=== PATIENT | female | born 1985 | race Caucasian/White ===

== ENCOUNTER → 2022-02-25 | Outpatient (CLI) | payer MEDICAID, SELFPAY ==
[2022-02-25 08:31] LABS: Absolute Lymphocyte Count 1.23 X10^3/uL (0.83-4.51); Absolute Neutrophil Count 5.4 X10^3/uL (2.0-7.7); Basophil# 0.02 X10^3/uL; Basophil% 0.3 % (0-1); Eosinophil# 0.17 X10^3/uL; Eosinophils% 2.4 % (0-5); Hematocrit 35.9 % (37-47); Hemoglobin 12.2 g/dL (12.0-15.0); Lymphocyte # 1.23 X10^3/ul (0.83-4.51); Mean Corpuscular Hgb 29.8 pg (27.0-32.0); Mean Corpuscular Volume 87.6 fL (81-99); Mean Platelet Vol. 9.4 fl (6.2-12.0); Monocyte# 0.39 X10^3/uL; Monocyte% 5.4 % (0-10); NRBC Flagged by Analyzer 0 % (0-5); Neutrophil % 74.6 % (47-70); Platelet Count 233 K/mm3 (150-450); RBC Distribution Width CV 13.5 % (11.6-14.6); RBC Distribution Width SD 43.1 fl (35.1-43.9); White Blood Count 7.2 K/mm3 (4.4-11.0)
[2022-02-25 08:41] LABS: Glucose Challenge Gest 1H 50g 137 mg/dL (70-140)
[2022-02-25 09:11] LABS: HIV - WCH Non-Reactive (Nonreactive); Syphilis Antibodies Non-reactive
== END | disposition home or self-care (01) ==
LOC: PAVLAB 08:12
PROVIDERS: PCP Family Medicine; Referring Provider Registered Nurse; Visit Provider Registered Nurse
DX: O09.90 Supervision of high risk pregnancy, unspecified, unspecified trimester (principal); Z13.1 Encounter for screening for diabetes mellitus; Z67.91 Unspecified blood type, Rh negative; Z3A.00 Weeks of gestation of pregnancy not specified
CPT/HCPCS: 36415; 82950; 85025; 86703; 86780; 86900; 86901

== ENCOUNTER → 2022-03-14 | Outpatient (CLI) | payer MEDICAID, SELFPAY ==
[2022-03-14 07:39] LABS: Glucose GTT-Gestation. Fasting 93 mg/dL (<105)
[2022-03-14 08:37] LABS: Glucose GTT-Gestational 1 Hr 187 mg/dL (<190)
[2022-03-14 10:25] LABS: Glucose GTT-Gestational 2 Hr 132 mg/dL (<165)
[2022-03-14 10:51] LABS: Glucose GTT-Gestational 3 Hr 55 L (<145)
== END | disposition home or self-care (01) ==
PROVIDERS: PCP Family Medicine; Referring Provider Registered Nurse; Visit Provider Registered Nurse
DX: O99.810 Abnormal glucose complicating pregnancy (principal); Z3A.00 Weeks of gestation of pregnancy not specified
CPT/HCPCS: 36415; 82951; 82952

== ENCOUNTER → 2022-04-15 | Outpatient (CLI) | payer OTHER, MEDICAID, SELFPAY ==
--- NOTE | 2022-04-15 12:23 | US_ITS ---
STUDY: SECOND AND THIRD TRIMESTER OBSTETRICAL ULTRASOUND REASON FOR EXAM: Female, 37 years old obesity LMP: Unknown TECHNIQUE: Transabdominal TECHNICAL QUALITY: Adequate. PRIOR ULTRASOUND: None. FINDINGS: There is a single intrauterine fetus. The fetus is in a cephalic presentation. There is demonstrated cardiac activity with a heart rate of 153 bpm. There is a normal amniotic fluid volume. The largest amniotic fluid pocket measures 6.0 cm. The amniotic fluid index (LEANDRO) is 12 cm. The placenta is fundal in location. There are Grade 1 placental changes. The cervix measures 3.7 cm in length. The adnexal regions are not visualized. BIOMETRY: BPD: 8.9 cm: 35 weeks, 6 days HC: 33.5 cm: 38 weeks, 2 days AC: 34.7 cm: 38 weeks, 4 days FL: 6.98 cm: 35 weeks, 6 days CI: 82% FL/BPD: 79% FL/HC: FL/AC: 20% HC/AC: 0.97 age by current US: 36 weeks, 2 days. JANIE by current US: 05/11/2022. Estimated weight: 3233 grams, +/- 485 grams, 87 %. Age by LMP: 36 weeks, 0 days. JANIE by LMP: 05/13/2022. US/OB Limited With Biometrics IMPRESSION: Single live intrauterine gestation with a mean gestational age of 36 weeks and 2 days. Electronically Signed: Aguila Beebe MD at 15:41 EST ,
== END | disposition home or self-care (01) ==
PROVIDERS: PCP Family Medicine; Referring Provider Registered Nurse; Visit Provider Registered Nurse
DX: O99.211 Obesity complicating pregnancy, first trimester (principal); E66.01 Morbid (severe) obesity due to excess calories; Z3A.12 12 weeks gestation of pregnancy
CPT/HCPCS: 76816

== ENCOUNTER → 2022-04-20 | Outpatient (CLI) | payer OTHER, MEDICAID, SELFPAY | END | disposition home or self-care (01) | PROVIDERS: PCP Family Medicine; Visit Provider Obstetrics & Gynecology | DX: O09.90 Supervision of high risk pregnancy, unspecified, unspecified trimester (principal); Z3A.00 Weeks of gestation of pregnancy not specified | CPT/HCPCS: 87077; 87081; 87186 ==

== ENCOUNTER → 2022-05-04 | Outpatient (CLI) | payer OTHER, MEDICAID, SELFPAY ==
[2022-05-04 13:08] LABS: ROM Internal Control Test YES-OK TO RESULT pt. (Internal QC); ROM Patient Test Negative (Negative)
== END | disposition home or self-care (01) ==
LOC: LABSPEC 12:49
PROVIDERS: PCP Family Medicine; Referring Provider Obstetrics & Gynecology; Visit Provider Obstetrics & Gynecology
DX: O26.899 Other specified pregnancy related conditions, unspecified trimester (principal); N89.8 Other specified noninflammatory disorders of vagina; Z3A.00 Weeks of gestation of pregnancy not specified
CPT/HCPCS: 84112

== ENCOUNTER 2022-05-09 07:04 | Inpatient (IN) | payer OTHER, MEDICAID, SELFPAY ==
[2022-05-09] VITALS (62 sets, daily range): BP systolic 112–159; BP diastolic 56–95; PULSE 69–120; RESP 14–22; TEMP 35.8–36.9; O2SAT 86–100; BMI 52.0
[2022-05-09] MEDS: Lactated Ringers 1,000 ML 50 ML IV (07:54)
--- NOTE | 2022-05-09 08:16 | HP.PCM.OB_ITS ---
HPI - General General Date of Admission: 05/09/22 HPI Narrative DESTIN HEART, is a 37 F who presents at 39.4 for IOL for suspected LGA. EFW at 36 weeks 3233g, 87%. 3 hour gct normal. course complicated by maternal obesity, GBS positive. Maternal Data Information JANIE Calculator Estimated Delivery Date Method Current WG Current Estimate 05/13/22 Manual 39w 3d Other Estimates 05/19/22 LMP (Certain) 38w 4d PFSH PFSH Medical History (Updated 05/09/22 @ 08:29 by Barbara Glynn CNM) Anxiety Depression Home Medications multivit-min no.71-iron fum 28 mg-folate no.1 1 mg-dha 300 mg capsule (PNV- [place]) cap PO 12/27/21 [History Last Taken Unknown] aspirin 81 mg chewable tablet 81 mg PO DAILY 05/09/22 [History Last Taken 05/08/22 15:00] Allergy/AdvReac Type Severity Reaction Status Date / Time No Known Allergies Allergy Verified 05/04/22 11:00 Family History Grandmother Colon cancer Paternal- unknown age of onset Social History adopted: No household members: significant other and children housing: house number of children: 1 current occupational status: employed current occupation: residential cleaning pets and animals: No sexually active: No Smoking Status: Former smoker quit date: 12/27/20 Electronic Cigarette Use: with nicotine alcohol intake: former details: socially substance use type: does not use well-balanced diet: about half the time caffeine: Yes Type: coffee Number of servings: 1 eating out: rarely or never during the past year weight has: remained stable what type of physical activity do you participate in: walking frequency: 3-4 times per week duration: 15-30 minutes/day aarti/baptism: None seatbelt use: always do you feel safe at home: Yes 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 Date Name GA/Weeks Outcome Route Bth Weight Infant Gen Labor Lgth Anesthesia Del Locatn Provider FOB 03/23/12 Chelsey 38 live - full term 8#2.5oz Female epidural [place] Dr. Hari Page Delivery Date: 03/23/12 Last Updated by: Selma Solano IOL, pre-e/poor diet Visit Details OB Flowsheet Initial Weight: Not Recorded Date -?-?-?-?-?-?-?-?-?-?-?-?- EGA Weight BP Urine Prot -?-?-?-?-?-?-?-?-?-?-?-?- Glucose FHR FuHt Pres Dilation -?-?-?-?-?-?-?-?-?-?-?-?- Effaced St Visit Note 12/27/21 -?-?-?-?-?-?-?-?-?-?-?-?- 20w 3d 265 lb 4 oz 128/81 Nega tive -?-?-?-?-?-?-?-?-?-?-?-?- Negative 150 20 -?-?-?-?-?-?-?-?-?-?-?-?- transfer of care . records not available. anatomy scan obtained at [facility], obtaining additional views. reviewed healthy wt gain in . 01/24/22 -?-?-?-?-?-?-?-?-?-?-?-?- 24w 3d 271 lb 4 oz 133/84 Nega tive -?-?-?-?-?-?-?-?-?-?-?-?- Negative 148 24 -?-?-?-?-?--?-?-?-?-?-?-?- LC- doing well. no ctx,vb,lof. good fm. 28 week labs ordered. JANIE changed based on 1st trimester us. 05/13/2022. 02/25/22 -?-?-?-?-?-?-?-?-?-?-?-?- 29w 0d 281 lb 6 oz 124/82 -?-?-?-?-?-?-?-?-?-?-?-?- 144 31 -?-?-?-?-?-?-?-?-?-?-?-?- LC- doing well. difficult to measure d/t habitus.1 hr GCT elevated. 3hr gtt ordered. discussed starting diabetic diet now. LC- doing well. difficult to measure d/t habitus.1 hr GCT elevated. 3hr gtt ordered. discussed starting diabetic diet now. will obtain growth scan if elevated at next visit. 03/07/22 -?-?-?-?-?-?-?-?-?-?-?-?- 30w 3d 287 lb 4 oz 130/82 Nega tive -?-?-?-?-?-?-?-?-?-?-?-?- Negative 149 32 -?-?-?-?-?-?-?-?-?-?-?-?- MH-No VB, LOF. Dec FM yesterday but better today. FHT easily found. Reviewed kick counts. echo next week. Enc need to sched 3 hr GTT. Declines flu/tdap 03/21/22 -?-?-?-?-?-?-?-?-?-?-?-?- 32w 3d 288 lb 8 oz 154/80 132/80 Negative -?-?-?-?-?-?-?-?-?-?-?-?- Negative 156 34 -?-?-?-?-?--?-?-?-?-?-?-?- Lc- no vb/lof/ct x. good fm. normal echo. Lc- no vb/lof/ctx. good fm. normal echo. passed 3 hour glucose. 04/05/22 -?-?-?-?-?-?-?-?-?-?-?-?- 34w 4d 289 lb 122/78 Negative -?-?-?-?-?-?-?-?-?-?-?-?- Negative 157 36 -?-?-?-?-?-?-?-?-?-?-?-?- MH-No VB, LOF. G ood FM. Growth US next week. 04/20/22 -?-?-?-?-?-?-?-?-?-?-?-?- 36w 5d 293 lb 4 oz 130/83 -?-?-?-?-?-?-?-?-?-?-?-?- 150 2 -?-?-?-?-?-?-?-?-?-?-?-?- 70 -3 JV- NST re active. growth scan shows JV- NST reactive. growth sca n shows normal LEANDRO, weight 7 lbs, estimated 8.5 pounds by 39 weeks. pt's last baby was just over 8 pounds without complicat ions. 04/28/22 -?-?-?-?-?-?-?-?-?-?-?-?- 37w 6d 293 lb 4 oz 130/81 Nega tive -?-?-?-?-?-?-?-?-?-?-?-?- Negative 145 Cephalic 4 -?-?-?-?-?-?-?--?-?-?-?-?- 70 -2 SM- no vb lof good fm no regular ctx, patient anxious about having a big baby, was 7 lbs 2 weeks ago. reassurance given, discussed possible IOL by 40 weeks if no spontnaeous labor. 05/04/22 -?-?-?-?-?-?-?-?-?-?-?-?- 38w 5d 300 lb 123/85 Negative -?-?-?-?-?-?-?-?-?-?-?-?- Negative 140 Cephalic 4 -?-?-?--?-?-?-?-?-?-?-?-?- 90 -3 JV- reacti ve NST. pt is requesting a 39 week IOL due to fear of size of baby and also fatigue. IOL set up monday for srom/pt/pcn. NST FHR Rate Baby A Baseline: 150 Variability:: Moderate Accelerations:: 15 x 15 Decelerations:: None NST Reactive:: Yes FHR Category:: Category I Uterine Activity:: irregular ROS Cardiovascular Cardiovascular: Denies abdominal pain, chest pain, diaphoresis or dyspnea Respiratory/Chest Respiratory/Chest: Denies change in mental status, chest congestion, chest tightness, cough, shortness of breath at rest, shortness of breath with exertion, breast mass, breast pain, breast skin changes, breast swelling, change in breast shape or nipple discharge Genitourinary Genitourinary: Reports change in urinary stream Musculoskeletal Musculoskeletal: Reports none Integumentary Integumentary: Reports none Neurologic Neurologic: Reports none Psychiatric Psychiatric: Reports none Endocrine Endocrinology: Reports none Hematologic/Lymphatic Hematologic/Lymphatic: Reports none Allergic/Immunologic Allergic/Immunologic: Reports none Vital Signs Vital Signs Vital Signs: 05/09/22 07:44 05/09/22 07:44 05/09/22 07:45 Temperature Temperature Source Temporal Pulse Rate 83 Blood Pressure 136/66 H BP Systolic 136 BP Diastolic 66 05/09/22 07:45 Temperature 97.1 F L Temperature Source Pulse Rate Blood Pressure BP Systolic BP Diastolic Weight Weight: 294 lb Body Mass Index (BMI) 52.0 Physical Exam Const alert, oriented x3 and no apparent distress General Appearance: cooperative, comfortable and well kempt Orientation / Consciousness: awake and oriented to person Exam Limitations: no limitations HEENT normocephalic Neck full ROM Chest inspection of chest normal Resp normal respiratory effort, normal air movement and no retractions Effort and Inspection: able to speak in complete sentences and symmetric chest movement Cardio regular rate Peripheral Pulses: pulses 2+ throughout GI normal to inspection, nondistended, normoactive bowel sounds Inspection: gravid no CVA tenderness and appearance of the vagina normal External Female Exam: normal appearance of the urethra; Negative for external lesion OB / External & Speculum: external exam normal Manual OB Exam: estimated gestational size appropriate, presentation cephalic, dilated 4, effaced 90 and station -2 Uterus Palpation: Negative for uterus tender Extremity normal to inspection Skin no rashes or lesions noted Neuro deep tendon reflexes 2+ bilaterally and gait normal Motor Exam: strength 5/5 throughout and clonus absent Psych Activity / Motor Behavior: appropriate eye contact Speech: normal speech Labs Labs Labs: Blood Type A NEGATIVE Hct 35.9 % (37-47) L Hgb 12.2 g/dL (12.0-15.0) Obstetrics US Syphilis Total Ab Non-reactive HIV 1&2 Antibody Non-Reactive (Nonreactive) Glucose 1 Hr 50 gm 137 mg/dL (70-140) Assessment & Plan (1) Encounter for induction of labor: COMMENT: pitocin/AROM (2) Blood type, Rh negative: COMMENT: rhogam at 28 and PRN (3) Anxiety: (4) Depression: (5) : QUALIFIERS: Weeks of gestation: 38 weeks Qualified Code(s): Z3A.38 - 38 weeks gestation of COMMENT: anatomy nl, transfer of care 19weeks; echo 03/15 MFM 36 week growth US-3233 grams- 87 %. (6) Supervision of high risk , antepartum: COMMENT: PRR JANIE 05/19/22, ,boy PC Chelsey Lentz (7) Obesity affecting : QUALIFIERS: Trimester: second trimester Qualified Code(s): O99.212 - Obesity complicating , second trimester COMMENT: BMI >40. transfer of care at 19 weeks. wkly NST growth scan at 36 weeks growth 3233g(87%) at 36 weeks. AC measuring at 38.4. discuss IOL at 39 weeks (8) GBS (group B streptococcus) infection: COMMENT: PCN in labor PLAN: Plan verified VTX by bedside ultrasound. routine admission orders pitocin per protocol AROM plans epidural for pain management, encouraged out of bed for engagement until desires epidural. PCN for GBS + Dr. Gaviria updated on admission, exam and poc. agrees with above. agrees with midwifery co-management for IOL.
[2022-05-09 08:32] LABS: Absolute Lymphocyte Count 1.26 X10^3/uL (0.83-4.51); Absolute Neutrophil Count 6.4 X10^3/uL (2.0-7.7); Basophil# 0.03 X10^3/uL; Basophil% 0.4 % (0-1); Eosinophil# 0.21 X10^3/uL; Eosinophils% 2.5 % (0-5); Hematocrit 37.5 % (37-47); Hemoglobin 12.5 g/dL (12.0-15.0); Lymphocyte # 1.26 X10^3/ul (0.83-4.51); Lymphocyte % 14.9 % (19-41); Mean Corp Hgb Conc 33.3 g/dL (32-36); Mean Corpuscular Hgb 29.6 pg (27.0-32.0); Mean Corpuscular Volume 88.9 fL (81-99); Mean Platelet Vol. 9.9 fl (6.2-12.0); Monocyte# 0.49 X10^3/uL; Monocyte% 5.8 % (0-10); NRBC Flagged by Analyzer 0 % (0-5); Neutrophil # 6.43 X10^3/uL (2.7-7.7); Neutrophil % 75.8 % (47-70); Platelet Count 231 K/mm3 (150-450); RBC Distribution Width CV 13.9 % (11.6-14.6); RBC Distribution Width SD 44.1 fl (35.1-43.9); Red Blood Count 4.22 M/mm3 (4.2-5.4); White Blood Count 8.5 K/mm3 (4.4-11.0)
[2022-05-09] MEDS: Oxytocin 15 Units/NS 250ml 15 UNITS/250 ML IV.SOLN 2 UNITS IV (08:35)
[2022-05-09 09:21] LABS: Syphilis Antibodies Non-reactive
[2022-05-09] MEDS: Penicillin G 3,000,000 Units 50 ML 100 UNITS IV ×2 (12:03→16:17)
[2022-05-09] MEDS: LACTATED RINGERS 500 ML 999 ML IV (13:02)
[2022-05-09] MEDS: fentaNYL-bupivacaine (epidural) 100 ML BAG EPIDURAL ×2 (14:05→18:25)
[2022-05-09] MEDS: Lactated Ringers 1,000 ML 200 ML IV (18:26)
--- NOTE | 2022-05-09 19:07 | OP.PCM_ITS ---
Assessment & Plan (1) Encounter for induction of labor: COMMENT: pitocin/AROM (2) Blood type, Rh negative: COMMENT: rhogam at 28 and PRN (3) Anxiety: (4) Depression: (5) : QUALIFIERS: Weeks of gestation: 38 weeks Qualified Code(s): Z3A.38 - 38 weeks gestation of COMMENT: anatomy nl, transfer of care 19weeks; echo 03/15 MFM 36 week growth US-3233 grams- 87 %. (6) Supervision of high risk , antepartum: COMMENT: PRR JANIE 05/19/22, ,curtis Lentz (7) Obesity affecting : QUALIFIERS: Trimester: second trimester Qualified Code(s): O99.212 - Obesity complicating , second trimester COMMENT: BMI >40. transfer of care at 19 weeks. wkly NST growth scan at 36 weeks growth 3233g(87%) at 36 weeks. AC measuring at 38.4. discuss IOL at 39 weeks (8) Abnormal glucose affecting : COMMENT: normal 3 hour GCT (9) GBS (group B streptococcus) infection: COMMENT: PCN in labor (10) Vaginal delivery: COMMENT: IOL elective 39 SM curtis morales Maternal Data Information JANIE Calculator Estimated Delivery Date Method Current WG Current Estimate 05/13/22 Manual 39w 3d Other Estimates 05/19/22 LMP (Certain) 38w 4d Vaginal Delivery Operative Information Pre-Operative Diagnosis: see a/p diagnoses Post-Operative Diagnosis: same Surgery / Procedure Performed: Spontaneous Vaginal Delivery Type of Anesthesia: Epidural Special Medications: none Estimated Blood Loss: 200 Fluids Replaced: crystalloid Findings Description of Procedure: Patient began pushing and delivered the head in the [FRANCIS] presentation. The head was delivered atraumatically [and a loose nuchal cord ?1 was identified and the infant delivered through without complication]. The anterior and posterior shoulders delivered without complication followed by the rest of the infant and the was placed on the maternal abdomen. Delayed cord clamping was employed for approximately 60 seconds. Cord was clamped and cut and gentle traction was applied to the cord and the placenta delivered spontaneously immediately following it was noted to be intact with three-vessel cord. The perineum and vagina were inspected and [noted to have a [] degree perineal laceration which was repaired in the usual fashion with 3-0 vicryl rapide.] [noted to have no laceration]. EBL was [200 cc]. Patient and tolerated delivery well. Amniotic Fluid Description: Clear Placental Delivery Description: Spontaneous Placenta Disposition: [facility] Cord Vessel Description: 3 Vessels Cord Entanglement: None Delayed Cord Clamping: Yes Post Vaginal Delivery Medications Given After Delivery: IV Pitocin Episiotomy Description: None Complication Complications: None Procedures Urinary/Genital [id number]: [id number] Vaginal Delivery [facility]
--- NOTE | 2022-05-09 19:09 | PCM.DC ---
Discharge Instructions Diet Discharge Diet: No restrictions Activity Discharge Activity: Return to Normal Activity, May Drive, May Shower and May Take a Tub Bath (in 4 weeks) May resume sexual activity in: 6-8 weeks (after seen by OB provider) Weight Bearing Status: Full weight bearing Lifting Restrictions: none Dressing / Incision Call your doctor if your incision/area has: Continuous Slow Oozing, Sudden Increased Bleeding, Increased Pain/ Swelling, Increased Redness, Foul Smelling Discharge and - Call your doctor if you observe: Fever of 101 or Higher, Inability to urinate, Using more than 1 pad per hour (for more than 2 hours in a row or more), Shortness of breath, Dizziness, Chest pain and - (headache not controlled with tylenol, change in vision) Suture Line Care: Avoid Pulling/Pushing and Avoid Pinching/Bending Change Dressing in: 1 week (leave open to air after removed) Remove Dressing in: 1 week (if present) Cleanse incision/area with: Soap & Water and Keep Dressing Clean & Dry Follow Up Care Please Follow Up With: Elle Gaviria MD When: in 6 weeks for visit, call the office to make the appointment. If you had elevated blood pressures call the office to be seen within 1 week. Test Results: Test results from this visit will be discussed in further detail at your follow-up appointment, if applicable. Discharge Plan Admission Admit Date/Time: 05/09/22 07:04 Attending Provider: Elle Gaviria Primary Care Provider: Jake Ortega Discharge Orders/Prescriptions Prescriptions: New oxycodone-acetaminophen [Percocet] 5-325 mg tablet 1 tab PO Q6H PRN (Reason: pain) 7 Days Qty: 20 0RF naproxen [naproxen] 500 mg tablet 500 mg PO BID PRN PRN (Reason: Pain) Qty: 30 1RF No Action [employer] 28-1-300 mg capsule 1 cap PO DAILY aspirin [Baby Aspirin] 81 mg Tablet,Chewable 81 mg PO DAILY Referrals / Follow Up: Jake Ortega DO [Primary Care Provider] - Disposition Disposition (needs filled in before D/C Order can be placed): Home, Self Care
--- NOTE | 2022-05-09 20:04 | OP.PCM_ITS ---
Assessment & Plan (1) delivery delivered: COMMENT: 39 IOL AOD 10 cm pushed 2 hrs 0 station maternal exhaustion curtis morales (2) Arrest of descent, delivered, current hospitalization: (3) Maternal exhaustion complicating labor and delivery: Maternal Data Information JANIE Calculator Estimated Delivery Date Method Current WG Current Estimate 05/13/22 Manual 39w 3d Other Estimates 05/19/22 LMP (Certain) 38w 4d Final JANIE Source: LMP Gestational age: 39 Details Operative Information Date of Procedure: 05/09/22 Pre-Operative Diagnosis: see a/p diagnoses Post-Operative Diagnosis: same Indications for : Arrrest of Descent (maternal exhaustion) Indications Narrative: surgeon: Elle Gaviria MD Classification: GAGE Procedure Type: low transverse disk sander #1: Tor Roman Type of Anesthesia: Epidural Special Medications: none Drain: Myers to straight drain Estimated Blood Loss: 900 Fluids Replaced: crystalloid Findings Description of Procedure: Patient was initially induced due to measuring on the larger side estimated weight 8-1/2 pounds and maternal request. Patient was 4 cm upon start of induction and underwent Pitocin induction of labor proceeded to have slow labor progress from 9 to 10 cm prolonged over the course of several hours but then was finally complete. Patient had 2 epidurals placed throughout the labor and they were still not completely adequate. Patient began pushing and after 2 hours of good pushing effort head was still at the 0 station with significant caput and mom started requesting a primary due to exhaustion and her suspicion that the baby is measuring larger. Predental block was placed bilaterally after Betadine prepping the vagina and injecting 10 cc of lidocaine locally bilaterally to try and aid in comfort because I felt like this was affecting maternal decision making. Minimal improvement in discomfort was noted. After additional pushing there did appear to be an arrest of descent of the head and the patient was counseled regarding the risks of a at time of pushing and risk for future complications with C-sections potentially. Patient and her both are asking to proceed with primary C- section. Patient was taken back to the operating room after a pillow was placed vaginally to help elevate the head. the patient was placed in the dorsal supine position with leftward tilt. Patient was prepped and draped in the normal sterile fashion. Pfannenstiel skin incision was made with the scalpel and carried through to the underlying layer of fascia with the scalpel. Fascia was nicked in the midline and the incision extended laterally. The rectus bellies were dissected off superiorly and inferiorly with out complication both sharply and bluntly. The peritoneum was entered digitally. The incision was stretched and a low transverse uterine incision was made with the scalpel. The infant's head was delivered atraumatically followed by the anterior and posterior shoulders without complication the rest of the delivered. The cord was clamped and cut and the infant was handed off to awaiting nurse. The placenta was delivered spontaneously immediately following and was noted to be intact and have a three-vessel cord. The uterus was unable to be exteriorized due to large uterine volume but was cleared of all clots and debris, and the incision was closed in a single layer closure using #1 Monocryl. The ovaries and fallopian tubes were noted to be within normal limits. david was placed over the incision. The peritoneum was closed with 3-0 Monocryl in a running fashion. Gloves were changed prior to fascial closure. Fascia was closed with 0 PDS in a running fashion. Subcutaneous tissue was copiously irrigated and the skin was closed with 3-0 Monocryl in a subcuticular fashion. Mepilex dressing was applied without complication. Patient was taken to recovery in stable condition. Placental Delivery Description: Spontaneous Placenta Disposition: [facility] Cord Vessel Description: 3 Vessels Delayed Cord Clamping: Yes Complications Risks of Surgery Discussed w/Patient: Bleeding, Infection, Need for Future C- Sections and Injury to surrounding structure(s) including bowel and bladder Complications: none Admit VTE Documentation VTE Present on Admission: No VTE Mechan Device Prophylaxis: SCD's Procedures Urinary/Genital 52xxx-[id number]: [id number] Delivery [facility]
[2022-05-09] MEDS: Oxytocin 15 Units/NS 250ml 15 UNITS/250 ML IV.SOLN 83 UNITS IV (21:56)
[2022-05-09] MEDS: Ketorolac 30 MG/ML Syringe IV (22:37)
[2022-05-09] MEDS: Acetaminophen 500 MG Tablet 1000 MG PO (23:46)
[2022-05-10] VITALS (7 sets, daily range): BP systolic 97–119; BP diastolic 41–69; PULSE 71–87; RESP 16–18; TEMP 35.9–36.8; O2SAT 95–98
[2022-05-10] MEDS: Lactated Ringers 1,000 ML 100 ML IV (01:00)
[2022-05-10] MEDS: Ketorolac 30 MG/ML Syringe IV ×2 (04:12→10:45)
[2022-05-10 05:30] LABS: Hematocrit 34.8 % (37-47); Hemoglobin 11.1 g/dL (12.0-15.0); Mean Corp Hgb Conc 31.9 g/dL (32-36); Mean Corpuscular Hgb 29.3 pg (27.0-32.0); Mean Corpuscular Volume 91.8 fL (81-99); Mean Platelet Vol. 10.1 fl (6.2-12.0); Platelet Count 226 K/mm3 (150-450); RBC Distribution Width CV 13.8 % (11.6-14.6); RBC Distribution Width SD 45.9 fl (35.1-43.9); Red Blood Count 3.79 M/mm3 (4.2-5.4); White Blood Count 13.1 K/mm3 (4.4-11.0)
[2022-05-10] MEDS: Acetaminophen 500 MG Tablet 1000 MG PO ×3 (06:07→18:28)
[2022-05-10] MEDS: Enoxaparin 40 MG/0.4 ML Syringe SC ×2 (09:09→21:27)
--- NOTE | 2022-05-10 10:22 | PCM.PN.OB ---
Subjective Subjective Patient doing well without complaints. Tolerating PO. Ambulating and voiding without difficulty. feeding well. Denies chest pain, shortness of breath, calf pain/swelling, fevers, chills, lightheadedness. Objective Data Objective Data Vital Signs: Vital Signs Temp Pulse Resp BP Pulse Ox O2 Del Method 98.2 F 81 18 110/56 L 96 Room Air 05/10/22 05:50 05/10/22 05:50 05/10/22 05:50 05/10/22 05:50 05/10/22 05:50 05/10/22 05:50 Oxygen Delivery Method Room Air Weight: 294 lb Body Mass Index (BMI) 52.0 Intake & Output: Intake and Output for Last 24 Hours 05/08/22 05/09/22 05/10/22 23:59 23:59 23:59 Intake Total 3236.53 / 3236.53 250 / 250 Output Total 1900 / 1900 450 / 450 Balance 1336.53 / 1336.53 -200 / -200 Lab / Micro Data Result Diagrams: 05/10/22 05:20 Labs: Laboratory Results - last 24 hr 05/09/22 07:40: Blood Type A NEGATIVE, Antibody Screen NEGATIVE 05/09/22 23:55: Screen NEGATIVE, Baby's Blood Type A POSITIVE, Baby's CHEVY NEGATIVE 05/10/22 05:20: WBC 13.1 H, RBC 3.79 L, Hgb 11.1 L, Hct 34.8 L, MCV 91.8, MCH 29.3, MCHC 31.9 L, RDW Std Deviation 45.9 H, RDW Coeff of Ruslan 13.8, Plt Count 226, MPV 10.1 ROS Constitutional Constitutional: Reports systems reviewed and no addt'l complaints, except as documented Cardiovascular Cardiovascular: Reports systems reviewed and no addt'l complaints, except as documented Respiratory/Chest Respiratory/Chest: Reports systems reviewed and no addt'l complaints, except as documented Gastrointestinal Gastrointestinal: Reports systems reviewed and no addt'l complaints, except as documented Physical Exam Const alert, oriented x3 and no apparent distress HEENT Head and Scalp: atraumatic Resp normal respiratory effort GI soft to palpation and non-tender Inspection: incision intact, healing well and drainage (none) Bimanual Exam - Vag & Uterus: uterus non-tender Uterus Palpation: uterus fundus firm (below Umbilicus) Assessment & Plan (1) delivery delivered: COMMENT: 39 IOL AOD 10 cm pushed 2 hrs 0 station maternal exhaustion boy carmen (2) Arrest of descent, delivered, current hospitalization: (3) Maternal exhaustion complicating labor and delivery: PLAN: Plan s/p LTCS PPD # 1 1. routine post care 2. rh positive 3. rubella immune
[2022-05-10] MEDS: 0.9% Saline Lock 10 ML Syringe IV (10:45)
[2022-05-10] MEDS: Senna/Docusate Sodium 1 Tablet PO (10:45)
--- NOTE | 2022-05-10 10:58 | PCM.PN.OB ---
Subjective Subjective Patient doing well without complaints. Tolerating PO. Ambulating and voiding without difficulty. Feeding well. Denies chest pain, shortness of breath, calf pain/swelling, fevers, chills, lightheadedness. Objective Data Objective Data Vital Signs: Vital Signs Temp Pulse Resp BP Pulse Ox O2 Del Method 98.0 F 84 16 119/52 L 97 Room Air 05/10/22 10:48 05/10/22 10:48 05/10/22 10:48 05/10/22 10:48 05/10/22 10:48 05/10/22 10:48 Oxygen Delivery Method Room Air Weight: 294 lb Body Mass Index (BMI) 52.0 Intake & Output: Intake and Output for Last 24 Hours 05/08/22 05/09/22 05/10/22 23:59 23:59 23:59 Intake Total 3236.53 / 3236.53 1211.67 / 1211.67 Output Total 1900 / 1900 450 / 450 Balance 1336.53 / 1336.53 761.67 / 761.67 Lab / Micro Data Attestation: I reviewed the patient's lab results. Result Diagrams: 05/10/22 05:20 Labs: Laboratory Results - last 24 hr 05/09/22 23:55: Screen NEGATIVE, Baby's Blood Type A POSITIVE, Baby's CHEVY NEGATIVE 05/10/22 05:20: WBC 13.1 H, RBC 3.79 L, Hgb 11.1 L, Hct 34.8 L, MCV 91.8, MCH 29.3, MCHC 31.9 L, RDW Std Deviation 45.9 H, RDW Coeff of Ruslan 13.8, Plt Count 226, MPV 10.1 ROS Constitutional Constitutional: Reports chills; Denies anorexia, fever(s) or headache(s) Cardiovascular Cardiovascular: Reports none; Denies dizziness, dyspnea, irregular heart rhythm or palpitations Respiratory/Chest Respiratory/Chest: Denies change in mental status, chest tightness, cough or dyspnea Gastrointestinal Gastrointestinal: Denies anorexia, coffee ground emesis or nausea Genitourinary Genitourinary: Reports other Details: jackson cath still in place Musculoskeletal Musculoskeletal: Reports none Integumentary Integumentary: Reports none Neurologic Neurologic: Reports none Psychiatric Psychiatric: Reports none and depression; Denies anxiety Physical Exam Const alert, oriented x3 and no apparent distress General Appearance: cooperative and comfortable Orientation / Consciousness: awake, oriented to person and oriented to place Neck full ROM Resp normal respiratory effort, normal air movement, no retractions and no use of accessory muscles Effort and Inspection: able to speak in complete sentences GI soft to palpation and non-distended Inspection: incision intact Palpation: soft and tender other (incision) Bladder / Kidney Exam: catheter in place urethral Groin / Perineum Exam: other light rubra lochia Uterus Palpation: uterus fundus firm (at U) Extremity normal to inspection and full ROM Psych mental status grossly normal, thought process normal, cooperative, affect normal and speech normal Assessment & Plan (1) delivery delivered: COMMENT: 39 IOL AOD 10 cm pushed 2 hrs 0 station maternal exhaustion boy carmen PLAN: s/p LTCS PPD # 1 1. routine post care 2. breast feeding- support given 3. rh negative 4. rubella immune
--- NOTE | 2022-05-10 13:05 | NURSING ---
patient was in shower and IV came out (called out after shower and reported it was sticking out), one dose of IV toradol remaining at 1600, provider Jayla Nunez discussed with [facility] Alanis Rivero for patient to receive last dose of toradol PO. last IV dose of toradol is cancelled, new dose of toradol to be given at 1600 today (4 of 4 doses)
[2022-05-10] MEDS: Ketorolac 10 MG Tablet PO (17:02)
[2022-05-11] MEDS: Naproxen 500 MG Tablet PO ×3 (00:17→14:07)
[2022-05-11] MEDS: Acetaminophen 500 MG Tablet 1000 MG PO ×3 (00:18→12:09)
[2022-05-11 02:34] VITALS: BP 127/66; PULSE 82; RESP 16; TEMP 36.4; O2SAT 97
--- NOTE | 2022-05-11 08:09 | PCM.PN.OB ---
Subjective Subjective Patient doing well without complaints. Tolerating PO. Ambulating and voiding without difficulty. Feeding well. Denies chest pain, shortness of breath, calf pain/swelling, fevers, chills, lightheadedness. Objective Data Objective Data Vital Signs: Vital Signs Temp Pulse Resp BP Pulse Ox O2 Del Method 97.5 F L 82 16 127/66 H 97 Room Air 05/11/22 02:34 05/11/22 02:34 05/11/22 02:34 05/11/22 02:34 05/11/22 02:34 05/11/22 02:34 Oxygen Delivery Method Room Air Weight: 294 lb Body Mass Index (BMI) 52.0 Intake & Output: Intake and Output for Last 24 Hours 05/09/22 05/10/22 05/11/22 23:59 23:59 23:59 Intake Total 3236.53 / 3236.53 1211.67 / 1211.67 Output Total 1900 / 1900 800 / 800 Balance 1336.53 / 1336.53 411.67 / 411.67 Lab / Micro Data Result Diagrams: 05/10/22 05:20 Physical Exam Const alert and oriented x3 HEENT normocephalic Eyes PERRL Neck full ROM Resp normal respiratory effort GI soft to palpation GI Narrative: FF below U. Dressing dry and intact Palpation: tender other (appropriately) Assessment & Plan (1) delivery delivered: COMMENT: 39 IOL AOD 10 cm pushed 2 hrs 0 station maternal exhaustion boy carmen PLAN: Plan s/p LTCS PPD # 2 1. routine post care 2. breast feeding- support given 3. rh positive 4. rubella immune 5. home today
[2022-05-11 09:02] VITALS: BP 119/50; PULSE 72; RESP 16; TEMP 36.6; O2SAT 97
[2022-05-11] MEDS: Enoxaparin 40 MG/0.4 ML Syringe SC (10:15)
[2022-05-11] MEDS: Senna/Docusate Sodium 1 Tablet PO (10:17)
[2022-05-11 14:00] VITALS: BP 134/70; PULSE 69; RESP 16; TEMP 36.2
--- NOTE | 2022-05-11 18:00 | CASEMGMT ---
Social Work Assessment Labor and Delivery Unit Patient Address: [facility] [address] Phone number: [phone]; alternate number [phone] Date of Referral: 05/10/2022 Time of Referral: 201 Referred By: Dr. Elle Gaviria Date of Intervention: 05/11/2022 Time of Intervention: 1800 Reason for Referral: Maternal history of depression and anxiety History obtained from: Medical records and mother of baby (MOB) Ban Back; father of baby (FOB) Tor Back present for most of conversation Household composition: MOB, FOB and MOB's older child. Intends for infant to reside in this home. Home situation is reported as safe and adequate and no concerns about the home environment. Patient's parent/guardian status: LAMONT is a 37-year-old female, to the [facility] since 2021. Parents have been together for 3 years however. Infant is the first child for these parents together, with MOB having a child from a prior relationship. During private conversation with the MOB, MOB denied any type of domestic violence or safety concerns with the father of baby. Minor children in the home include: Chelsey (03.23.2012; father is reported as a Camilo. Child born in [place]) and boy Dago Back who was born 05/09/2022. Medical History: LAMONT is 2, para 1 now 2 after delivering Dago. care started late at 20 weeks in [place] as was a transfer of care. LAMONT is advanced maternal age. Infant delivered weighing 8 pounds 12 ounces. Apgars 3 and 8 at 1 and 5 minutes of life respectively. Educational Status: LAMONT reports she graduated high school and has some college education. No reported concerns with reading, writing, or learning comprehension. Financial Status: LAMONT reports has most recently been working from home at a [employer] center. FOB works as a driver merchandiser. Supplies: MOB and FOB report to have necessary supplies to care for the including a crib, bassinet, car seat, clothing, diapers, wipes. MOB is planning to breast-feed and does have a breast pump and bottles if needed. Childcare/Caregiver(s): MOB plans to be the primary caregiver along with help from the FOB. Transportation: Both parents drive and denies any concerns. Programs/Agencies Involved: LAMONT has [place] Medicaid through job and family services. Active with WIC. Verbally agrees to help me grow referral. No other agency involvement reported. Children Services/Legal Issues: MOB denies any legal history or children services history. Behavioral Health Issues: Mental Health History: MOB admits to history of depression and anxiety prior to and typically treated with Zoloft and then Xanax as needed. Reports went off both medications for the and that felt did okay overall though it did have.'s of sadness. MOB reports she felt as though she was able to go through the grieving process regarding some family losses after going off of the Zoloft. MOB denies any history of suicidal ideation, planning, intent or attempts for herself and states that she sees each day as a gift. MOB reports intent to restart Zoloft now that is over and reports has been considering counseling. Substance Use History: MOB denies any substance use issues for herself. No alcohol or marijuana usage. Family History: LAMONT's brother by suicide in March 2021 via gunshot. MOB reports her brother was ex and had many things bottled up inside. MOB reports to have another brother who has a history of schizophrenia which MOB believes was triggered by history of substance use. Drug Screens: No drug screens noted. FOB history: FOB acknowledges history of depression and anxiety for himself being treated with citalopram. Family/Social Stressors: There have been several losses within the family over the last year including the MOB's grandfather last year, the MOB's brother by suicide last year in 2021 and then MOB's grandmother just 1 week ago. Family just got through the services for the grandmother. Support Systems: MOB reports support from the father of baby and also MOB's parents. FOB will be off through the weekend and then MOB's parents will be around if needed for additional support. Depression/Shaken Baby/Safe Sleeping: MOB and FOB able to give appropriate responses on shaken baby and safe sleeping. Educated parents to depression, anxiety and psychosis. Educated to risk factors for such as well as that both parents can have mood complications. ASSESSMENT: Met with MOB and FOB in room, introducing to self and social work role. Initially MOB was alone and this instructional writer was able to establish with MOB agreement to continue conversation with that when FOB returned. MOB also denied privately any safety concerns or domestic violence history. MOB and FOB reported to have necessary supplies to care for the baby, adequate housing, transportation, and no concerns with food or utilities. MOB and FOB indicate to feel connection to the baby. Both parents appear open in talking with each other regarding mood complications as both do normally deal with depression and anxiety. Parents excepted information on mood and anxiety disorders. MOB acknowledges she is considering counseling and excepted resources for such. MOB and FOB also agreed to help me grow referral for additional support. MOB and FOB denied any other concerns for home-going and report looking forward to going home. MOB held good eye contact, was pleasant, and attentive to the baby during visit. MOB was appropriate. Also observed FOB to hold and handle the baby in an appropriate manner. There have been no voiced concerns by staff regarding parent-child interactions or bonding. Emotional support and encouragement provided to MOB this date, acknowledging MOB's grief from the loss of family members. PLAN: MOB and infant will discharge home when ready. Resources provided on mood and anxiety disorders. Resource packet for [facility] provided including counseling options. Help me grow referral to be made. No other services requested or indicated. -ERASMO Kunz MSW *This note was generated with [employer] software. It may contain incorrect words, spelling, and punctuation that were not noted in review of the chart prior to signing*
--- NOTE | 2022-05-12 11:22 | CASEMGMT ---
Social Work Labor and Delivery unit Help me grow referral submitted through the [facility] assisted care web-based referral system. Note, when speaking with MOB for assessment, did offer nurse visit program through [facility] and MOB declined. No other services requested or indicated. -SAMUEL Kunz, DIRECTOR MEDICAL AFFAIRS. *This note was generated with [employer] dictation software. It may contain incorrect words, spelling, and punctuation that were not noted in review of the chart prior to signing*
== END 2022-05-11 18:18 | disposition home or self-care (01) | DRG 788 ==
PROVIDERS: Obstetrics & Gynecology; Admitting Provider Obstetrics & Gynecology; PCP Family Medicine; Visit Provider Obstetrics & Gynecology
DX: O62.1 Secondary uterine inertia (principal); O26.03 Excessive weight gain in pregnancy, third trimester; O75.81 Maternal exhaustion complicating labor and delivery; O36.63X0 Maternal care for excessive fetal growth, third trimester, not applicable or unspecified; O69.81X0 Labor and delivery complicated by cord around neck, without compression, not applicable or unspecified; O99.824 Streptococcus B carrier state complicating childbirth; O26.893 Other specified pregnancy related conditions, third trimester; Z67.11 Type A blood, Rh negative; Z37.0 Single live birth; Z3A.39 39 weeks gestation of pregnancy; Z79.82 Long term (current) use of aspirin; Z87.891 Personal history of nicotine dependence
CPT/HCPCS: 59025; 59050; 76815; 85025; 85027; 85461; 86780; 86850; 86900; 86901; 99221; J7120; A4216; G0378; J2405; J2790

== ENCOUNTER → 2022-06-20 | Outpatient (CLI) | payer OTHER, SELFPAY ==
[2022-06-27 20:07] LABS: HPV APTIMA, High Risk Negative (Negative)
== END | disposition home or self-care (01) ==
LOC: LABSPEC 14:27
PROVIDERS: PCP Family Medicine; Referring Provider Obstetrics & Gynecology; Visit Provider Obstetrics & Gynecology
DX: Z12.4 Encounter for screening for malignant neoplasm of cervix (principal)
CPT/HCPCS: 87624; 88175; G0145

== ENCOUNTER → 2022-08-09 | Outpatient (CLI) | payer OTHER, SELFPAY ==
--- NOTE | 2022-08-09 14:40 | US_ITS ---
EXAM: US PELVIS TRANSABDOMINAL AND TRANSVAGINAL, COMPLETE CLINICAL INDICATION: fibroid TECHNIQUE: Transabdominal and transvaginal pelvic ultrasound was performed with grayscale and color Doppler imaging. Transvaginal imaging was used for better evaluation of the endometrium and adnexa. COMPARISON: No relevant prior studies available. FINDINGS: UTERUS/CERVIX: Small intramural leiomyoma measuring 1.3 x 0.9 x 1.5 cm involving the right fundus of the uterus. Anteverted. The uterus measures 9.1 x 7.1 x 5.3 cm. The endometrial stripe measures 0.8 cm in thickness. RIGHT OVARY: Unremarkable. Blood flow is present in the right ovary. The right ovary measures 3.6 x 2.1 x 2.3 cm. LEFT OVARY: Unremarkable. Blood flow is present in the left ovary. The left ovary measures 2.9 x 2.4 x 2.2 cm. FREE FLUID: None. BLADDER: Unremarkable as visualized. Wall is normal thickness for degree of distention. US/Pelvic w/ Transvaginal IMPRESSION: Small intramural leiomyoma measuring 1.3 x 0.9 x 1.5 cm involving the right fundus of the uterus. Electronically Signed: Hieu Saucedo MD at 3:13 EDT ,
== END | disposition home or self-care (01) ==
LOC: US 14:37
PROVIDERS: PCP Family Medicine; Referring Provider Obstetrics & Gynecology; Visit Provider Obstetrics & Gynecology
DX: D25.1 Intramural leiomyoma of uterus (principal)
CPT/HCPCS: 76830; 76856